=== PATIENT | female | born 1985 | race American Indian/Alaskan Native ===

== ENCOUNTER 2021-02-08 15:13 | Emergency (ER) | payer OTHER ==
[2021-02-08 15:33] VITALS: BP 104/64
[2021-02-08] MEDS ORDERED: BUTALB/ACETAMINOPHEN/CAFFEINE TAB PO ONE (16:21)
[2021-02-08] MEDS ORDERED: PROMETHAZINE 25 MG TAB PO ONE (16:21)
--- NOTE | 2021-02-08 16:49 | Emergency Department Report ---
ED General Adult HPI - General Chief complaint: Headache Stated complaint: HEAD PRESSURE/HEADACHE Time Seen by Provider: 02/08/21 16:19 Source: patient Mode of arrival: Ambulatory Limitations: No Limitations - History of Present Illness Initial comments: 35-year-old female without significant past medical history presenting with complaints of headache. The patient states that this is been ongoing for about 4 5 days associated with nausea, occasional lightheadedness has not had headaches like this before. She states that earlier today she had an episode of diffuse body shaking however she remembered everything and did not lose consciousness. She also states that earlier in the week she had some discomfort in her chest which she went to urgent care for were some labs were done but she does not have all of these results yet but was told that her potassium was borderline abnormal. She states that the chest pain seems to mostly resolved and denies any shortness of breath. Reports some nausea but no vomiting, no photophobia, not a thunderclap headache. Symptoms are moderate nothing makes better or worse. Severity scale (0 -10): 10 - Related Data Previous Rx's Medication Instructions Recorded Last Taken Type Butalb/Acetamin/Caff 50-325-40 1 tab PO Q6HR PRN #12 tab 02/08/21 Unknown Rx [Fioricet 50-325-40] Allergies Allergy/AdvReac Type Severity Reaction Status Date / Time iodine Allergy Swelling Verified 02/08/21 15:30 Penicillins Allergy Swelling Verified 02/08/21 15:30 ED Review of Systems ROS: Stated complaint: HEAD PRESSURE/HEADACHE Other details as noted in HPI Comment: All other systems reviewed and negative ED Past Medical Hx - Past Medical History Previous Medical History?: No - Surgical History Past Surgical History?: Yes Additional Surgical History: foot surgery, thyroid - Medications Home Medications: Home Medications Medication Instructions Recorded Confirmed Last Taken Type Butalb/Acetamin/Caff 50-325-40 1 tab PO Q6HR PRN #12 tab 02/08/21 Unknown Rx [Fioricet 50-325-40] ED Physical Exam - General Limitations: No Limitations General appearance: alert, in no apparent distress - Head Head exam: Present: atraumatic, normocephalic - Eye Eye exam: Present: normal appearance - ENT ENT exam: Present: mucous membranes moist - Neck Neck exam: Present: normal inspection - Respiratory Respiratory exam: Present: normal lung sounds bilaterally. Absent: respiratory distress - Cardiovascular Cardiovascular Exam: Present: regular rate, normal rhythm. Absent: systolic murmur, diastolic murmur, rubs, gallop - GI/Abdominal GI/Abdominal exam: Present: soft, normal bowel sounds. Absent: tenderness, guarding, rebound - Extremities Exam Extremities exam: Present: normal inspection - Back Exam Back exam: Present: normal inspection - Neurological Exam Neurological exam: Present: alert, oriented X3, CN II-XII intact, normal gait, reflexes normal. Absent: motor sensory deficit - Psychiatric Psychiatric exam: Present: normal affect, normal mood - Skin Skin exam: Present: warm, dry, intact, normal color. Absent: rash ED Course Vital Signs 02/08/21 02/08/21 15:32 16:29 Temperature 98.8 F Pulse Rate 66 Respiratory 18 16 Rate Blood Pressure 104/64 [Right] O2 Sat by Pulse 98 Oximetry ED Medical Decision Making - Lab Data Result diagrams: 02/08/21 16:45 02/08/21 16:45 - EKG Data -: EKG Interpreted by Me EKG shows normal: sinus rhythm, axis, intervals, QRS complexes, ST-T waves Rate: bradycardia - Radiology Data Radiology results: report reviewed neg head ct - Medical Decision Making 35-year-old female presenting with headache, seizure-like activity today however she was completely aware during the whole event and can describe it in detail also reported chest pain earlier in the week that seems to be mostly resolved. No difficulty in breathing does have some nausea but no vomiting, no fevers and she has a completely normal physical/neurologic exam. Differentials include anxiety tension headache mass, less likely intracranial hemorrhage. No features to suggest meningitis. She has not had headaches like this before, CT will be obtained also basic labs and EKG. Patient given Fioricet and Phenergan Labs and head CT all within normal limits. Headache is modestly improved at this time. Advised on outpatient primary care follow-up with return precautions is given. - Differential Diagnosis tension tobar, anxiety, doubt ich, mass, migraine Critical care attestation.: If time is entered above; I have spent that time in minutes in the direct care of this critically ill patient, excluding procedure time. ED Disposition Clinical Impression: Headache Qualifiers: Headache type: tension-type Headache chronicity pattern: acute headache Intractability: not intractable Qualified Code(s): G44.209 - Tension-type headache, unspecified, not intractable Disposition: DC-01 TO HOME OR SELFCARE Is pt being admited?: No Condition: Good Instructions: General Headache Without Cause Prescriptions: Butalb/Acetamin/Caff 50-325-40 [Fioricet 50-325-40] 1 tab PO Q6HR PRN #12 tab PRN Reason: Headache Referrals: PRIMARY MD JUAN [Primary Care Provider] - 3-5 Days CAROLINE BA MD [Staff Physician] - 3-5 Days Forms: Work/School Release Form(ED) Time of Disposition: 18:11
--- NOTE | 2021-02-08 17:03 | Cat Scan Report ---
CT BRAIN: 02/08/2021 INDICATION / CLINICAL INFORMATION: new tobar. COMPARISON: None available. FINDINGS: BRAIN/INTRACRANIAL STRUCTURES: Unenhanced CT images of the brain demonstrate no evidence of acute int racranial abnormality. Ventricles and sulci are normal in size and shape. There is no evidence of acute ischemic injury, hemorrhage, or mass. There are no abnormal extra-axial fluid collections. EXTRACRANIAL STRUCTURES: Unremarkable. IMPRESSION: No acute abnormality. All CT scans at this location are performed using dose reduction to ALARA by means of automated expos ure control. Signer Name: Arian Evans MD Signed: 02/08/2021 4:59 PM Workstation Name: [id number]
[2021-02-08 17:25] LABS: Basophils # (Auto) 0.1 K/mm3 (0.0-0.1); Basophils % (Auto) 2.8 % (0.0-1.8); Eosinophils # (Auto) 0.1 K/mm3 (0.0-0.4); Eosinophils % (Auto) 1.9 % (0.0-4.3); Hematocrit 32.8 % (30.3-42.9); Hemoglobin 10.6 gm/dl (10.1-14.3); Lymphocytes # (Auto) 1.9 K/mm3 (1.2-5.4); Lymphocytes % (Auto) 39.8 % (13.4-35.0); Mean Corpuscular HGB Conc 32 % (30-34); Mean Corpuscular Volume 82 fl (79-97); Monocytes # (Auto) 0.3 K/mm3 (0.0-0.8); Monocytes % (Auto) 7.1 % (0.0-7.3); Platelet Count 252 K/mm3 (140-440); Red Blood Count 4.03 M/mm3 (3.65-5.03); Red Cell Distribution Width 15.6 % (13.2-15.2)
[2021-02-08 17:39] LABS: Alanine Aminotransferase 6 units/L (7-56); Albumin 4.2 g/dL (3.9-5); Blood Urea Nitrogen 6 mg/dL (7-17); Calcium 8.7 mg/dL (8.4-10.2); Hemolysis Index 14
[2021-02-08 18:03] LABS: BUN/Creatinine Ratio 10
--- NOTE | 2021-02-10 14:23 | Electrocardiograph Report ---
[facility] Test Date: 2021-02-08 Test Time: 17:43:00 Pat Name: GALE HEALY Department: Room: Gender: F [place] Cooper: Giovanna MOORE : 1985 Requested By: KOSTA OLIVO Order Number: [id number] Reading MD: Whitney White Measurements Intervals [place] Rate: 49 P: 54 MO: 171 QRS: -14 QRSD: 85 T: 1 QT: 470 QTc: 423 Interpretive Statements Sinus bradycardia Probable left atrial enlargement No previous ECG available for comparison Electronically Signed On 02-10-2021 14:23:34 EDT by Whitney White
== END 2021-02-08 18:21 | disposition home or self-care (01) ==
LOC: ED 15:13
DX: R51.9 Headache, unspecified (principal); R11.0 Nausea; Z98.890 Other specified postprocedural states; Z79.899 Other long term (current) drug therapy; Z88.0 Allergy status to penicillin; Z88.6 Allergy status to analgesic agent
CPT/HCPCS: 36415; 70450; 80053; 84484; 84703; 85025; 93005; 99284; Q0169